=== PATIENT | male | born 1965 | race Two or more races ===

== ENCOUNTER 2025-01-02 15:07 | Emergency (ER) | payer OTHER ==
[~2025-01-02] VITALS: Ht 185.4 cm; Wt 89.2 kg
--- NOTE | 2025-01-02 15:38 | ED.PDOC ---
[place]vingt. trauma (HPI) HPI Comments COOK; HEAD INJURY HPI: Poor Historian. 59-year-old male presents to ED for evaluation of head injury at work. Some weight approximately 10 lb fell on his head. No loss of consciousness. No nausea or vomiting or dizziness or confusion or any other acute complaints. No neck pain. Patient has suffered a scalp laceration. Not actively bleeding. Not on blood thinners. Not taking any medications. Otherwise healthy. Tetanus is up-to-date within the last five years. Past Medical History: Denies any Past Surgical History: Denies any REVIEW OF SYSTEMS: CONSTITUTIONAL: Denies acute: fever, diaphoresis, chills, generalized weakness. HEAD: Denies acute: headache, photophobia Eyes: Denies acute: Double vision, vision loss, eye pain, eye discharge. EARS: Denies acute: tinnitus, hearing loss, ear discharge, ear pain, THROAT: Denies acute: sore throat, swelling, difficulty swallowing , pain with swallowing, change in voice. NECK: Denies acute: neck pain, neck swelling, stiff neck. HEART: Denies acute : chest pain, palpitations, LUNGS: Denies acute: SOB, wheezing, cough, hemoptysis ABDOMEN: Denies acute: abdominal pain, Nausea, Vomiting, diarrhea, melena , hematemesis, hematochezia SKIN: Denies acute: rash, redness, lesions, itchiness. EXTREMITIES: Denies acute: calf pain, numbness, tingling, weakness, denies pain in extremity. Denies acute: Low back pain. Neuro: Denies acute: focal neurological deficit, motor or sensory focal neurological deficit, tremors, seizure like activity, confusion, dizziness, change in mental status, loss of bowel or bladder function, cauda equina like symptoms. : Denies acute: dysuria, hematuria, flank pain, increase in urinary frequency. PSYCH: Denies acute: hallucination, suicidal ideation, homicidal ideation. PHYSICAL EXAM: General: -----no---acute distress, awake and alert. Head: normocephalic, atraumatic. Evaluation of the area of complaint, patient has a proximally 2 cm in a U shape laceration at the crown of the head. Neck: supple, trachea is midline, no swelling. Cervical spine: Palpation of the posterior midline of the cervical spine reveals no focal swelling, erythema, focal tenderness to palpation. Patient has normal range of motion. Throat: Normal phonation. Eyes:, no erythema, no purulent discharge, no proptosis, no icterus. Heart: regular rate, regular rhythm, no significant murmur appreciated. Lungs: no apparent respiratory distress, Able to speak in full sentences. No wheezing, no rhonchi, no crackles. No stridors Clear to auscultation bilaterally. Abdomen: non tender to palpation, non distended, soft, no guarding, no rebound, + bowel sounds. Neuro: Awake, Alert, oriented to name, self, situation, follows commands GCS=15. Speech is normal. Skin: no petechia, no purpura, no cyanosis, non-pale, not jaundice. Lower extremities: --no - Pitting edema no deformity, no focal swelling, no calf TTP. Makes eye contact. moves all four extremities. Face: no apparent facial droop. Ambulating in the ED independently. PERRLA, EOM-I No nystagmus. No nuchal rigidity, Kernig's sign, Brudzinski's sign, no meningeal signs. ED COURSE: Chief Complaint: Laceration Time Seen by MD: 15:13 Reviewed notes: Nurses Notes, Allergies Allergies: Coded Allergies: NO KNOWN ALLERGIES (Unverified , 01/02/25) Information Source: Patient Mode of Arrival: Ambulatory Was a procedure done? Was a procedure done?: Yes Sedation Sedation?: No Laceration Repair : Length 2 Anesthetic: Nothing Laceration Repair Prep: Saline, by Irrigation Laceration Repair Wound Comple: epidermis/dermis repair Laceration Repair: Ralls (5) Informed consent obtained: Yes Risks, benefits, and alternati: Yes Differential Diagnosis Multiple Trauma: Closed Head Injury, Cardiac Injury, Fractures, Cerebral Contusion, Spine Injury, Vascular Injury, Foreign Body, Hematoma Neck Injury: Cervical Muscle Spasm, Cervical Sprain, Cervical Strain, Cervical Fracture, Spinal Cord Injury X-Ray, Labs, Meds, VS Vital Signs Date Time Temp Pulse Resp B/P (MAP) Pulse Ox O2 Delivery O2 Flow Rate FiO2 01/02/25 19:01 98.3 68 18 146/80 (102) 97 98.3 01/02/25 19:01 68 18 97 Room Air 01/02/25 17:32 99.1 69 16 122/71 (88) 94 99.1 01/02/25 15:24 98.3 77 18 130/80 (97) 96 98.3 [facility] [address] [facility] [address] Ph: [phone] DIAGNOSTIC IMAGING Diagnostic Imaging Report : [id number] Signed PATIENT: CHELA MIRELESCCT: [id number] UNIT: [id number] : 1965 LOC: ER ROOM / BED: / AGE / SEX: 59 / M ADM STATUS: REG ER SERVICE [id number] ORDERING PHYSICIAN: MARK ARAUZ DO PROCEDURE(s): HWOCT - HEAD WITHOUT CONTRAST REASON: head injury ORDER NUMBER(s): [id number], ACCESSION NUMBER(s): [id number] CLINICAL HISTORY: head injury TECHNIQUE: Helical imaging carried out from skull base to vertex without intravenous contrast. This exam was performed according to our departmental dose optimization program. Up-to-date CT equipment and radiation dose reduction techniques are utilized as appropriate. CTDIVol: 58.7 mGy DLP: 1112.75 mGy-cm WID: COMPARISON: None FINDINGS: Small high right frontal scalp contusion. The ventricles and subarachnoid spaces are normal in size and configuration. There is no midline shift or mass effect. The de la torre white matter interfaces are maintained. The basal cisterns are patent. There is no evidence of acute intracranial hemorrhage or extra-axial fluid collection. The mastoid air cells and visualized paranasal sinuses are well-aerated. IMPRESSION: 1. No acute intracranial abnormality. 2. Small high frontal scalp contusion. ATED BY: CAMRON CAVANAUGH MD DICTATED DATE/TIME: 01/02/251544 SIGNED BY: CAMRON CAVANAUGH MD SIGNED DATE/TIME: 01/02/251544 CC: Time of 1ST Reevaluation: 03:06 Reevaluation 1ST: Improved Patient Education/Counseling: Diagnosis, Treatment Family Education/Counseling: Other Comments Patient presented with the above HPI.---closed head injury at work---workup was initiated. patient was found with the above mentioned diagnosis. the following medications were ordered: please refer to order lists of meds and tests obtained by myself Dr. Arauz. Patient ED course and VS have been stabilized. Patient has been reassessed in the ED and remained in a stable condition. Pertinent incidental findings were discussed with the patient and/or family. Patient/family voices understanding and is agreeable with plan. Patient has been observed in the ED adequate length of time to insure improvement/stability. Escalation of care considered: Consideration of escalation to observation or admission Laceration was repaired after it was cleansed. Tetanus is up-to-date. Ralls were used. Patient tolerated the procedure well. Wound dressing was applied and wound care instructions given to the patient. Patient was DISCHARGED home in a stable condition. All the reports of any imaging studies that were ordered by myself were reviewed by myself. Departure 1 Departure Time of Disposition: 18:51 Impression: Primary Impression: Closed head injury Additional Impression: Scalp laceration Disposition: 01 HOME / SELF CARE / HOMELESS Condition: Stable Additional Instructions: Additional instructions: You MUST follow-up with your primary care/family doctor in 1 to 2 days. If you are unable to see your primary care/family doctor, please return to our emergency room for re-assessment and re-evaluation in 1 to 2 days. Return to the emergency room here in our facility or to the nearest ER [facility] if your symptoms change or worsen. CONSULTATIONS: you MUST Follow-up for consultation as soon as possible with: -neurology in 1-2 days. Please call for appointment. You MUST call the consultants office yourself to make an appointment. You may need to arrange that through your insurance and/or your primary/family doctor. If you are unable to see the [facility] consultant in 1 to 2 days, you must return to our emergency room (or any other ER of your choice) for re-assessment and re- evaluation. Adequate fluid hydration. Do not submerge your head in the next 48 hours. Keep the laceration clean dry and covered. Apply [id number] triple ointment antibiotics as needed 2 t imes a day. Soledad removal in 7-10 days. Below is a copy of your radiological report for follow up: [facility] [address] [facility] [address] Ph: [phone] DIAGNOSTIC IMAGING Diagnostic Imaging Report : [id number] Signed PATIENT: GENESIS MIRELES ACCT: [id number] UNIT: [id number] : 1965 LOC: ER ROOM / BED: / AGE / SEX: 59 / M ADM STATUS: REG ER SERVICE [id number] ORDERING PHYSICIAN: MARK ARAUZ DO PROCEDURE(s): HWOCT - HEAD WITHOUT CONTRAST REASON: head injury ORDER NUMBER(s): [id number], ACCESSION NUMBER(s): [id number] CLINICAL HISTORY: head injury TECHNIQUE: Helical imaging carried out from skull base to vertex without intravenous contrast. This exam was performed according to our departmental dose optimization program. Up-to-date CT equipment and radiation dose reduction techniques are utilized as appropriate. CTDIVol: 58.7 mGy DLP: 1112.75 mGy-cm WID: COMPARISON: None FINDINGS: Small high right frontal scalp contusion. The ventricles and subarachnoid spaces are normal in size and configuration. There is no midline shift or mass effect. The de la torre white matter interfaces are maintained. The basal cisterns are patent. There is no evidence of acute intracranial hemorrhage or extra-axial fluid collection. The mastoid air cells and visualized paranasal sinuses are well-aerated. IMPRESSION: 1. No acute intracranial abnormality. 2. Small high frontal scalp contusion. ATED BY: CAMRON CAVANAUGH MD DICTATED DATE/TIME: 01/02/25 154 SIGNED BY: CAMRON CAVANAUGH MD SIGNED DATE/TIME: 01/02/25 154 CC: Discharged With: Self Critical Care Note Critical Care Time?: No I personally scribed for MARK ARAUZ DO ([email or web address]) on 01/02/25 at 21:53. Electronically submitted by Tyree Ayala ([email or web address]). MARK ARAUZ DO Jan 02, 2025 15:38
--- NOTE | 2025-01-02 15:47 | DVH ---
CLINICAL HISTORY: head injury TECHNIQUE: Helical imaging carried out from skull base to vertex without intravenous contrast. This e xam was performed according to our departmental dose optimization program. Up-to-date CT equipment an d radiation dose reduction techniques are utilized as appropriate. CTDIVol: 58.7 mGy DLP: 1112.75 mGy-cm WID: COMPARISON: None FINDINGS: Small high right frontal scalp contusion. The ventricles and subarachnoid spaces are normal in size and configuration. There is no midline donaldo ft or mass effect. The de la torre white matter interfaces are maintained. The basal cisterns are patent. Th ere is no evidence of acute intracranial hemorrhage or extra-axial fluid collection. The mastoid air cells and visualized paranasal sinuses are well-aerated. IMPRESSION: 1. No acute intracranial abnormality. 2. Small high frontal scalp contusion.
[2025-01-02 19:01] VITALS: BP 146/80; PULSE 68; RESP 18; TEMP 98.3; O2SAT 97
== END 2025-01-02 19:05 | disposition home or self-care (01) ==
LOC: ER 15:07
DX: S01.01XA Laceration without foreign body of scalp, initial encounter (principal); R51.9 Headache, unspecified; W50.0XXA Accidental hit or strike by another person, initial encounter; Y93.89 Activity, other specified; Y92.89 Other specified places as the place of occurrence of the external cause; Y99.8 Other external cause status
CPT/HCPCS: 12001; 70450